=== PATIENT | female | born 1960 ===

== ENCOUNTER → 2019-02-14 22:49 | Outpatient (REF) | payer SELFPAY ==
[2019-02-17 22:43] LABS: RPR Screen Nonreactive (Nonreactive)
== END ==
LOC: LAB 22:49
PROVIDERS: Visit Provider Family Medicine
DX: Z11.1 Encounter for screening for respiratory tuberculosis (principal); Z11.3 Encounter for screening for infections with a predominantly sexual mode of transmission
CPT/HCPCS: 36415; 86592; 87591